=== PATIENT | female | born 1965 | race Caucasian/White ===

== ENCOUNTER 2017-08-04 07:46 | Day surgery (SDC) | payer BC ==
[~2017-08-04] VITALS: Ht 157.5 cm; Wt 77.4 kg
[~2017-08-04 07:46] MED LIST: CRUTCH3 USE; ESCI10; HYDACE5 PO
[2017-08-04] MEDS ORDERED: Prilosec Otc20 MG (08:15)
== END 2017-08-04 10:02 | disposition home or self-care (01) ==
LOC: ORSCSDS 07:46
PROVIDERS: Internal Medicine Gastroenterology
PROC: 0DBN8ZX Excision of Sigmoid Colon, Via Natural or Artificial Opening Endoscopic, Diagnostic (ICD-10-PCS; principal; 2017-08-04 09:00)
PROC: 0DBK8ZX Excision of Ascending Colon, Via Natural or Artificial Opening Endoscopic, Diagnostic (ICD-10-PCS; principal; 2017-08-04 09:00)
DX: Z12.11 Encounter for screening for malignant neoplasm of colon (principal); D12.2 Benign neoplasm of ascending colon; D12.5 Benign neoplasm of sigmoid colon; F17.210 Nicotine dependence, cigarettes, uncomplicated
CPT/HCPCS: 88305; J0330; J1980; J2405; J7120

== ENCOUNTER → 2021-02-17 | Outpatient (CLI) | payer BC ==
[~2021-02-17] MED LIST changes: +Prilosec Otc20 MG
== END ==
LOC: LAB 12:32 → LAB SHORT 12:32
DX: D48.5 Neoplasm of uncertain behavior of skin (principal); D23.5 Other benign neoplasm of skin of trunk; Z88.1 Allergy status to other antibiotic agents
CPT/HCPCS: 88305

== ENCOUNTER → 2023-04-12 | Outpatient (CLI) | payer BC ==
[2023-04-13 10:53] LABS: Candida species (DNA Probe) Negative (NEGATIVE); G. vaginalis (DNA Probe) Negative (NEGATIVE); T. vaginalis (DNA Probe) Negative (NEGATIVE)
== END ==
LOC: LAB 15:55 → LAB SHORT 15:55
PROVIDERS: Advanced Practice Midwife
DX: N76.0 Acute vaginitis (principal)
CPT/HCPCS: 87480; 87510; 87660